=== PATIENT | female | born 1950 | race Caucasian/White ===

== ENCOUNTER 2019-07-29 06:29 | Observation (INO) ==
[2019-07-29] MEDS ORDERED: Lidocaine -MPF 1% 2 ML AMPUL INFILT ONE (06:37)
[2019-07-29] MEDS ORDERED: CeFAZolin Syr 2,000MG/20 ML 2,000 MG/20 ML SYRINGE IVPB ONE (06:37)
[2019-07-29] MEDS: Ringers Solution, Lactated 1,000 ML IVC SCH ×3 (07:10→13:37)
[2019-07-29] MEDS ORDERED: MetroNIDAZOLE 500 MG/100 ML 500 MG/100 ML BAG IVPB ONE (07:28)
[2019-07-29] MEDS ORDERED: Famotidine 20 MG/2 ML VIAL IVP ONE (07:28)
[2019-07-29] MEDS ORDERED: Acetaminophen IV 1,000 MG/100 ML INFUS..BTL IVPB ONE (07:28)
[2019-07-29] MEDS ORDERED: Gabapentin 300 MG CAPSULE PO ONE (07:29)
[2019-07-29] MEDS ORDERED: Bupivacaine/EPI 1:200k 0.25%PF 10 ML VIAL INFILT ONE (07:43)
[2019-07-29] MEDS ORDERED: *HR* OxyCODONE Immed Rel 5 MG TABLET PO PRN (08:39)
[2019-07-29] MEDS ORDERED: *HR* HYDROmorphone (PF) 1 MG/ML SYRINGE IVP PRN ×2 (08:39→13:08)
[2019-07-29] MEDS ORDERED: Ondansetron 4 MG/2 ML VIAL IVP ONE (08:39)
[2019-07-29] MEDS ORDERED: *HR* Midazolam HCl 2 MG/2 ML VIAL ONE (09:09)
[2019-07-29] MEDS ORDERED: Dexamethasone 4 MG/ML VIAL ONE (09:09)
[2019-07-29] MEDS ORDERED: EPHEDrine 50 MG/ML VIAL ONE (09:09)
[2019-07-29] MEDS ORDERED: *HR* Propofol 200 MG/20 ML VIAL IVP ONE (09:09)
[2019-07-29] MEDS ORDERED: *HR* FentaNYL (PF) 100 MCG/2 ML VIAL ONE (09:09)
[2019-07-29] MEDS ORDERED: Ondansetron 4 MG/2 ML VIAL ONE (09:09)
[2019-07-29] MEDS ORDERED: Lidocaine -MPF 2% 2 ML VIAL ONE (09:09)
[2019-07-29] MEDS ORDERED: Lidocaine HCL 4 ML Topical Solution (Laryng-O-Jet Kit Sterile Pak) TP ONE (09:48)
[2019-07-29] MEDS ORDERED: Ketorolac 30 MG/ML VIAL ONE (10:42)
[2019-07-29] MEDS ORDERED: Lidocaine/EPI 1:100k 1% 50 ML VIAL ONE (11:25)
[2019-07-29] MEDS ORDERED: *HR* LORazepam 0.5 MG TABLET PO PRN (13:08)
[2019-07-29] MEDS ORDERED: Ondansetron 4 MG/2 ML VIAL IVP PRN (13:08)
[2019-07-29] MEDS ORDERED: Naloxone 0.4 MG/ML INJ IVP PRN (13:08)
[2019-07-29] MEDS ORDERED: *HR* HYDROmorphone 2 MG/ML SYRINGE IVP PRN (15:25)
[2019-07-30] MEDS: Ibuprofen 600 MG TABLET PO PRN ×3 (00:52→15:19)
[2019-07-30] MEDS: *HR* HYDROcodone/Acet 5/325 mg TABLET PO PRN ×4 (05:02→20:55)
[2019-07-30 05:54] LABS: Basophils % 0.1 %; Eosinophils % 0.6 %; Hematocrit 32.1 % (35.3-44.9); Hemoglobin 10.3 g/dL (11.5-15.4); Immature Granulocytes % 0.1 % (0-4); Lymphocytes # 1.1 K/mcL (0.6-4.6); Lymphocytes % 16.1 %; Mean Corpuscular HGB Conc 32.1 g/dL (31.6-35.5); Mean Corpuscular Hemoglobin 29.9 pg (28.0-33.3); Mean Corpuscular Volume 93.3 fL (83.0-100.0); Mean Platelet Volume 9.3 fL (9.4-12.4); Monocytes # 0.6 K/mcL (0.0-1.3); Monocytes % 8.6 %; Neutrophils # 5.1 K/mcL (1.6-8.9); Platelet Count 204 K/mcL (140-400); Red Blood Count 3.44 M/mcL (3.82-4.97); Red Cell Distribution Width 13.7 % (11.5-14.5); Segmented Neutrophils % 74.5 %; White Blood Count 6.8 K/mcL (4.3-11.1)
[2019-07-30] MEDS ORDERED: *HR* HYDROcodone/Acet 5/325 mg TABLET PO ONE (08:07)
[2019-07-30] MEDS: Ringers Solution, Lactated 1,000 ML IVC SCH (23:03)
[2019-07-30] MEDS: Ketorolac 15 MG/ML VIAL IVP PRN (23:04)
[2019-07-31] MEDS: *HR* HYDROcodone/Acet 5/325 mg TABLET PO PRN ×3 (04:21→13:27)
[2019-07-31 08:04] VITALS: BP 134/62
[2019-07-31] MEDS: Ketorolac 15 MG/ML VIAL IVP PRN (11:24)
== END 2019-07-31 15:10 | disposition home or self-care (01) ==
LOC: SAMDAY 06:29 → 1NENUOBS 06:29
PROVIDERS: ADMIT Obstetrics & Gynecology; ATTEND Obstetrics & Gynecology